=== PATIENT | female | born 1985 | race Caucasian/White ===

== ENCOUNTER 2022-11-12 15:02 | Emergency (ER) | payer BC ==
[~2022-11-12] VITALS: Ht 160 cm; Wt 59.1 kg
[2022-11-12 15:08] VITALS: BP 139/67; PULSE 83; RESP 16; TEMP 98; O2SAT 100
[2022-11-12] MEDS ORDERED: CYCL-394 PO (16:38)
[2022-11-12] MEDS ORDERED: IBUP-1984 PO (16:38)
== END 2022-11-12 16:48 | disposition home or self-care (01) ==
LOC: ER 15:03
DX: S09.90XA Unspecified injury of head, initial encounter (principal); S16.1XXA Strain of muscle, fascia and tendon at neck level, initial encounter; M54.50 Low back pain, unspecified; M54.2 Cervicalgia; V49.9XXA Car occupant (driver) (passenger) injured in unspecified traffic accident, initial encounter; Y93.89 Activity, other specified; Y92.89 Other specified places as the place of occurrence of the external cause; Y99.8 Other external cause status
CPT/HCPCS: 72040; 72100; 99284

== ENCOUNTER 2024-02-19 15:52 | Emergency (ER) | payer BC, OTHER ==
[~2024-02-19] VITALS: Ht 157.5 cm; Wt 60.5 kg
[2024-02-19 16:10] VITALS: TEMP 97.8
[2024-02-19] MEDS: LIDOcaine 1% 30ml preserv. free vial IJ STA (17:36)
[2024-02-19] MEDS: LIDOcaine 1% W/epiNEPHrine 1:100,000 20ml vial SQ ONE (17:42)
[2024-02-19] MEDS ORDERED: HYDR-3965 PO (18:31)
[2024-02-19] MEDS: TETanus/Pertussis (Acell)/Diphther VAC/PF (Tdap-Adult) 0.5ml syringe IMVAC ONE (18:51)
[2024-02-19 18:57] VITALS: BP 130/89; PULSE 89; RESP 14; O2SAT 98
== END 2024-02-19 19:00 | disposition home or self-care (01) ==
LOC: ER 15:52
DX: S61.211A Laceration without foreign body of left index finger without damage to nail, initial encounter (principal); Z87.442 Personal history of urinary calculi; W26.0XXA Contact with knife, initial encounter; Y93.89 Activity, other specified; Y92.89 Other specified places as the place of occurrence of the external cause; Y99.8 Other external cause status
CPT/HCPCS: 12001; 90471; 90715; 99283; A6222; A6449